=== PATIENT | male | born 1950 | race Hispanic/Latino ===

== ENCOUNTER → 2020-02-09 | Outpatient (CLI) | payer MEDICARE ==
--- NOTE | 2020-02-09 11:39 | NUR ---
MBSS COMPLETED. TRANSIENT DEEP PENETRATION WITH THIN AND MIXED TEXTURES. RECOMMEND MECHANICAL SOFT, NECTAR THICK LIQUIDS; PILLS CRUSHED WITH APPLESAUCE. HEAD OF TRANSPORT LOGISTICS PROVIDED RESULTS AND RECOMMENDATIONS VIA VERBAL AND WRITTEN MODALITY. CAREGIVER VERBALIZED UNDERSTANDING AND COMPLIANCE. HEAD OF TRANSPORT LOGISTICS PROVIDED INSTRUCTIONS ON HOW TO REACH NECTAR-THICK LIQUIDS. SHE VERBALIZED THAT SHE WAS FAMILIAR WITH THICKENER AND SHE WAS SUSPECTING THAT HE WOULD NEED IT. ALL QUESTIONS ANSWERED AT THIS TIME. HEAD OF TRANSPORT LOGISTICS [place] [facility] [place] HAS ANY QUESTIONS IN THE FUTURE. Addendum: 02/09/20 at 1143 by CLAUDY HANSON [facility] Amended: Links added.
== END | disposition home or self-care (01) ==
LOC: RAH 10:09
PROVIDERS: ATTEND Family Medicine
DX: R13.13 Dysphagia, pharyngeal phase (principal); R47.02 Dysphasia
CPT/HCPCS: 74230; 92611